=== PATIENT | female | born 1985 | race Caucasian/White ===

== ENCOUNTER 2019-09-02 13:13 | Emergency (ER) | payer SELFPAY ==
[~2019-09-02] VITALS: Ht 162.6 cm; Wt 55.0 kg
[2019-09-02 13:39] LABS: BASOPHILS # (AUTO) 0.04 x10^3/uL (0-0.1); BASOPHILS % (AUTO) 1 % (0-1); EOSINOPHILS # (AUTO) 0.08 x10^3/uL (0-0.4); EOSINOPHILS % (AUTO) 1 % (1-7); LYMPHOCYTES # (AUTO) 2.88 x10^3/uL (1-3.4); LYMPHOCYTES % (AUTO) 33 % (22-44); MD NO; MEAN CORPUSCULAR HEMOGLOBIN 24.1 pg (27.0-34.8); MEAN CORPUSCULAR HGB CONC 31.2 g/dL (32.4-35.8); MEAN CORPUSCULAR VOLUME 77.3 fL (80-100); MEAN PLATELET VOLUME 8.8 fL (7.4-10.4); MONOCYTES # (AUTO) 0.58 x10^3/uL (0.2-0.8); MONOCYTES % (AUTO) 7 % (2-9); NEUTROPHILS # (AUTO) 5.12 x10^3/uL (1.8-6.8); NEUTROPHILS % (AUTO) 59 % (42-75); PLATELET COUNT 427 x10^3/uL (130-400); RED BLOOD COUNT 4.47 x10^6/uL (3.82-5.3); RED CELL DISTRIBUTION WIDTH 21.6 % (9.6-15.2)
[2019-09-02 13:49] LABS: ANION GAP 3 mmol/L (5-15); CALCIUM 8.8 mg/dL (8.5-10.1); CHLORIDE 110 mmol/L (98-107)
[2019-09-02 13:54] VITALS: BP 115/73
[2019-09-02 13:56] LABS: CREATININE 0.61 mg/dL (0.55-1.02); SALICYLATE LEVEL < 1.7 mg/dL (2.8-20.0)
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
--- NOTE | 2019-09-02 14:06 | NUR ---
REPORT RECEIVED FROM JENNIFER GODOY.
[2019-09-02 14:18] LABS: AMPHETAMINE SCREEN, URINE Positive (Negative); BARBITURATE SCREEN, URINE Negative (Negative); BENZODIAZEPINE SCREEN, URINE Negative (Negative); CANNABINOID SCREEN, URINE Positive (Negative); COCAINE SCREEN, URINE Negative (Negative); METHADONE SCREEN, URINE Negative (Negative); OPIATE SCREEN, URINE Negative (Negative)
--- NOTE | 2019-09-02 14:26 | NUR ---
SODA PROVIDED AT THIS TIME.
--- NOTE | 2019-09-02 14:43 | NUR ---
MAMMAL CONTROL AGENT AT BEDSIDE AT THIS TIME.
--- NOTE | 2019-09-02 14:58 | NUR ---
SNACKS AND JUICE PROVIDED AT THIS TIME.
--- NOTE | 2019-09-02 15:41 | NUR ---
PT IS AGITATED. PT KEEPS TALKING HER SELF AND ASKING THE SAME QUESTIONS OVER AND OVER. EDMD NOTIFIED.
[2019-09-02] MEDS ORDERED: LORazepam 1MG TABLET ONE (15:44)
--- NOTE | 2019-09-02 15:46 | NUR ---
PT MEDICATED PER EMAR. PT TOLERATED WELL.
[2019-09-02] MEDS ORDERED: PLEASE ENTER ALLERGIES MC SCH (16:00)
[2019-09-02] MEDS ORDERED: LORazepam 1MG TABLET PO ONE (16:00)
--- NOTE | 2019-09-02 16:34 | NUR ---
Patient given discharge instructions and they have confirmed that they understand the instructions. Patient ambulatory with steady gait.
== END 2019-09-02 16:35 | disposition home or self-care (01) ==
LOC: ED 16:20
DX: R45.851 Suicidal ideations (principal); F10.10 Alcohol abuse, uncomplicated; F11.10 Opioid abuse, uncomplicated; F15.10 Other stimulant abuse, uncomplicated; F17.200 Nicotine dependence, unspecified, uncomplicated; Y90.9 Presence of alcohol in blood, level not specified
CPT/HCPCS: 36415; 80048; 80307; 82040; 84703; 85025; 99283

== ENCOUNTER 2020-01-08 06:53 | Emergency (ER) | payer SELFPAY ==
[~2020-01-08] VITALS: Ht 162.6 cm; Wt 59.9 kg
[2020-01-08 06:58] VITALS: BP 125/69
--- NOTE | 2020-01-08 07:06 | NUR ---
BIB [facility] D/T WITNESSED SEIZURE ON APT PLAYGROUND. HX OF SEIZURES. NO MEDICATIONS DAILY PER EMS. +METH. +WEED. BS 140. 18 R AC. PT RESTLESS AND HAS FLIGHT OF IDEAS. BLANKETS WRAPPED AROUND AMALIA RIVERA FOR SEIZURE PRECAUTION. SUCTION SET UP IN ROOM. PT CONNECTED TO VITAL SIGN MONITORING. TECH AT BEDSIDE OBTAINING EKG. CALL LIGHT PROVIDED TO PT. PT DENIED NEED FOR BLANKET. AWAITING PROVIDER TO EVALUATE PT.
--- NOTE | 2020-01-08 07:14 | NUR ---
PT AMBULATED TO RESTROOM WITH A STEADY GAIT. PT PROVIDED WITH A URINE COLLECTION CUP. WHEN PT BROUGHT CUP BACK TO ROOM "URINE" WAS CLEAR AND COLD. PT FILLED COLLECTION CUP UP WITH WATER. RN TO INFORM JDAIEL.
--- NOTE | 2020-01-08 07:37 | NUR ---
RN REMOVED PIV ACCESS. PT GETTING DRESSED BY SELF. PT TO BE DC IN A STABLE CONDITION. AWAITING FOR DC PAPERWORK.
--- NOTE | 2020-01-08 07:41 | NUR ---
PT DC IN A STABLE CONDITION. PIV WAS REMOVED WITH TIP INTACT. PT AMBULATED TO DC DESK WITH RN WITH A STEADY GAIT.
== END 2020-01-08 07:43 | disposition home or self-care (01) ==
LOC: ED 07:30
DX: F15.10 Other stimulant abuse, uncomplicated (principal); F22 Delusional disorders; R56.9 Unspecified convulsions; R00.0 Tachycardia, unspecified
CPT/HCPCS: 93005; 99283

== ENCOUNTER 2020-02-15 01:32 | Emergency (ER) | payer SELFPAY ==
[~2020-02-15] VITALS: Ht 157.5 cm; Wt 56.0 kg
[2020-02-15 01:34] VITALS: BP 137/53
--- NOTE | 2020-02-15 01:55 | NUR ---
assumed care of pt. report can Traore RN. pt is very agitated and restless. admits to meth use, denies othe drugs. no apparent resp. distress. no family at bedside. pt is unkempt and malodorous
--- NOTE | 2020-02-15 02:54 | NUR ---
pt sleeping in position of comfort. no apparent distress
--- NOTE | 2020-02-15 03:30 | NUR ---
attempted to D/C pt. pt uncooperative with information regarding where she can go. pt giving mulitple locations and differnt names. pt uncooperative with D/C
== END 2020-02-15 03:52 | disposition home or self-care (01) ==
LOC: ED 02:06
DX: S80.11XA Contusion of right lower leg, initial encounter (principal); F15.10 Other stimulant abuse, uncomplicated; X58.XXXA Exposure to other specified factors, initial encounter; Y93.89 Activity, other specified; Y92.098 Other place in other non-institutional residence as the place of occurrence of the external cause; Y99.8 Other external cause status
CPT/HCPCS: 99283

== ENCOUNTER 2020-03-10 12:58 | Emergency (ER) | payer SELFPAY ==
[~2020-03-10] VITALS: Ht 162.6 cm; Wt 58.9 kg
[2020-03-10 13:06] VITALS: BP 92/53
--- NOTE | 2020-03-10 13:18 | NUR ---
ELECTRONIC SCALE SUBASSEMBLER: URINE COLLECTED AND SENT TO LAB.
[2020-03-10 13:35] LABS: HCG UR SG 1.017 (1.003-1.030)
== END 2020-03-10 15:21 | disposition left against medical advice (07) ==
LOC: ED 15:15
DX: Z32.00 Encounter for pregnancy test, result unknown (principal); R11.0 Nausea
CPT/HCPCS: 81025; 99283